=== PATIENT | female | born 1990 | race African-American/Black ===

== ENCOUNTER 2019-09-04 19:05 | Emergency (ER) | payer OTHER, SELFPAY ==
[2019-09-04 19:55] VITALS: BP 138/77; PULSE 70; RESP 16; TEMP 36.4; O2SAT 100
--- NOTE | 2019-09-04 20:44 | ED.DENTAL ---
HPI - Dental/Oral General Chief complaint: Dental/Oral Stated complaint: toothache Time Seen by Provider: 09/04/19 20:44 Source: patient Mode of arrival: ambulatory Limitations: no limitations History of Present Illness HPI Narrative: The pt is a 28 y/o female who presents to the ED c/o upper and lower right-sided toothache onset today. Pt states that she has had sore throat and swollen tonsils the past few days. Pt received Amoxicillin for this. She states she is unsure if she has any broken or chipped teeth, but notes that she has tried Advil and Orajel without relief. Pt denies fever and chills. Pt notes that she sees a dentist at the dental school at [facility], but did not have anything done the last time she went because of other medical issues. MD Complaint: tooth pain Relieving factors: nothing Associated symptoms: sore throat (Onset few days ago) and other (Swollen tonsils (Onset few days ago)) Treatment prior to arrival: topical analgesic and other (Advil) Related Data Home Medications Medication Instructions Recorded Confirmed amoxicillin-pot clavulanate tablet 09/04/19 Allergies Allergy/AdvReac Type Severity Reaction Status Date / Time No Known Allergies Allergy Verified 09/04/19 20:12 Review of Systems Review of Systems: All systems reviewed & are unremarkable except as noted in HPI and below Constitutional: Constitutional: Denies chills and Denies fever(s) ENT: Reports mouth pain (Upper and lower right-sided toothache), Reports sore throat (Onset few days ago) and Reports other (Swollen tonsils (Onset few days ago)) PMFSH Past Medical History Medical History (Updated 09/04/19 @ 21:00 by Joselo Spicer DO) Gallbladder disease Surgical History Surgical History (Updated 09/04/19 @ 20:51 by Juan Barney) H/O section History of cholecystectomy Social History Social History (Updated 09/04/19 @ 20:51 by Juan Barney) Smoking status: Smoker, status unknown Gender identity (if verbalized by the patient): Female Exam Narrative: Exam Narrative: APPEARANCE: No acute distress, nontoxic, resting in bed HEENT: Normocephalic, atraumatic, TMs clear bilaterally, nares patent, oral mucosa moist, airway patent, tonsils 3+ with no exudate, mild erythema posterior pharynx, tooth #4 and 29 are tender to palpation tooth #4 has had filling placed, mild erythema no fluctuance of the gum no overlying swelling of the jaw no submandibular tenderness no sublingual or tenderness RESPIRATORY: No respiratory distress MUSCULOSKELETAl: Moves all extremities. NEURO: Awake and alert. Following commands, speech normal, no focal deficits SKIN:: Warm, dry. Normal Color PSYCHIATRIC: Normal affect/mood Course Course Emergency Course: Patient is currently on Augmentin and while patient continue to take Discussed with patient results of workup and diagnosis. Discussed need for follow-up with primary care, proper use of medication, and reasons to return to the emergency department. Patient understands and agrees to current treatment plan Vital Signs Vital signs: Vital Signs Temperature 97.5 F L 09/04/19 19:55 Pulse Rate 70 09/04/19 19:55 Respiratory Rate 16 09/04/19 19:55 Blood Pressure 138/77 09/04/19 19:55 Pulse Oximetry 100 09/04/19 19:55 Temperature 97.5 F L 09/04/19 19:55 Pulse Rate 70 09/04/19 19:55 Respiratory Rate 16 09/04/19 19:55 Blood Pressure 138/77 09/04/19 19:55 Pulse Oximetry 100 09/04/19 19:55 Discharge Plan Discharge Clinical Impression: Odontalgia Patient Disposition: Home, Self-Care Condition: Stable Instructions: Antibiotic Form, Toothache (ED) Additional Instructions: Return for increasing pain, fever or any other symptoms of concern Prescriptions: New ibuprofen [IBU] 600 mg tablet 600 mg PO Q6H PRN (Reason: pain) Qty: 20 RF: 0 No Action amoxicillin-pot clavulanate 875-125 mg tablet RF: 0 Follow-up/Refer
== END 2019-09-04 21:00 | disposition home or self-care (01) ==
PROVIDERS: Emergency Provider Emergency Medicine
DX: K08.89 Other specified disorders of teeth and supporting structures (principal)
CPT/HCPCS: 99283; A9270

== ENCOUNTER 2019-10-12 03:37 | Emergency (ER) | payer OTHER, SELFPAY ==
--- NOTE | ~2019-10-12 | XR_ITS ---
EXAMINATION: XR chest 1V portable DATE: 10/12/2019 04:49 INDICATION: 2 weeks of cough TECHNIQUE: frontal view of the chest was obtained. COMPARISON: None FINDINGS: The lungs are clear with no focal airspace opacities, pulmonary edema, pleural effusion or pneumothor ax. The cardiomediastinal silhouette is normal. Visualized bones and soft tissues are unremarkable. IMPRESSION: 1. No acute cardiopulmonary disease. Reviewed, dictated and finalized at location A.
[2019-10-12 03:53] VITALS: BP 146/74; PULSE 79; RESP 12; TEMP 36.3; O2SAT 99
--- NOTE | 2019-10-12 04:12 | ECG_ITS ---
Measurements Intervals [place] Rate: 66 P: 38 NV: 167 QRS: 49 QRSD: 88 T: 41 QT: 393 QTc: 413 Interpretive Statements SINUS RHYTHM WITH SINUS ARRHYTHMIA NORMAL ECG Electronically Signed On 10-12-2019 6:55:21 CDT by Femi Tong D.O.
--- NOTE | 2019-10-12 04:38 | ED.URI ---
HPI - URI/Sore Throat General Chief Complaint: Upper Respiratory Infection Stated Complaint: cough x 2 wks Time Seen by Provider: 10/12/19 04:01 Source: patient Mode of arrival: ambulatory Limitations: no limitations History of Present Illness HPI Narrative: 28 yo female who presents for evaluation of dry cough x 2 weeks. PAtient states 2 weeks ago she developed a cough. She thought her symptoms were getting better but then her cough worsened on Friday. She states tonight she developed shortness of breath and chest tightness and back pain. She describes burning chest pain and that pain is worse with coughing. She also reports constant chest tightness. She denies fever, chills, nausea, vomiting or sore throat. She denies leg pain or swelling. She denies history asthma. She denies sick contacts. MD elicited complaint: cough Onset (ago): week(s) Consistency: progressively worsening Description of mucous: clear Able to tolerate fluids by mouth: Yes Associated symptoms: cough, chest pain and shortness of breath Related Data Home Medications Medication Instructions Recorded Confirmed amoxicillin-pot clavulanate tablet 09/04/19 Allergies Allergy/AdvReac Type Severity Reaction Status Date / Time No Known Allergies Allergy Verified 09/04/19 20:12 Review of Systems Review of Systems: All systems reviewed & are unremarkable except as noted in HPI and below Constitutional: Constitutional: Denies chills, Denies fever(s) and Denies weakness ENT: Denies dizziness Cardiovascular: Cardiovascular: Reports chest pain, Denies rapid heart rate and Denies radiating jaw, neck or arm pain Respiratory: Respiratory: Denies chest congestion, Reports cough, Reports dyspnea and Denies wheezing Gastrointestinal: Gastrointestinal: Denies abdominal pain, Denies nausea and Denies vomiting Musculoskeletal: Musculoskeletal: Reports back pain [facility] Past Medical History Medical History Gallbladder disease Surgical History Surgical History H/O section History of cholecystectomy Social History Social History (Updated 10/12/19 @ 04:44 by Aminta Painter MD) Smoking status: Former smoker Gender identity (if verbalized by the patient): Female Exam Const: General: no acute distress and alert Orientation/consciousness: patient oriented x3 HENMT: Head: normocephalic and atraumatic Ears: hearing grossly normal bilaterally, external ears normal and TM's normal bilaterally General nose exam: Normal external nose present and Normal nares present Face and sinus: face symmetric Mouth: Yes Normal oral and palatal mucosa present, Yes lip normal and Yes oropharynx normal Throat: posterior oropharynx normal and tonsils normal Eyes: Conjunctivae: conjunctivae normal Pupils: Equal, round and reactive pupils present EOM: EOMs intact bilaterally Chest: Chest palpation & inspection: normal inspection of the chest Resp: Effort & Inspection: normal respiratory effort, no retractions and not tachypneic Auscultation: clear to auscultation bilaterally and diminished lung sounds Cardio: Rate: regular rate Rhythm: regular rhythm Heart sounds: no murmurs GI: GI Palp: Yes Soft to palpation, No Tenderness to palpation present (GI), No Guarding due to palpation present (GI), No Rigid due to palpation and No Hernia present Skin: General skin exam: normal color Rashes: no rashes Neuro: General: patient oriented x3 and moves all extremities Extrem: General: no pedal edema and no calf tenderness Course Reevaluation(s) Reevaluation #1: Patient states she feels better after receiving albuterol MDI. I have discussed no significant abnormalities to labs. Her chest xray shows patchy infiltrate on left. She is stable for discharge. She request testing for COVID. Given cough, chest tightness and sob will test.
[2019-10-12 04:39] VITALS: O2SAT 100
[2019-10-12 04:39] LABS: Basophils Percent Auto 0.4 % (0.2-1.2); Eosinophils Absolute Auto 0.1 K/mm3 (0-0.3); Eosinophils Percent Auto 0.9 % (0-4.4); Hematocrit 39.7 % (37.0-47.0); Hemoglobin 13.2 g/dL (12.0-15.0); Immature Granulocyte Absolute 0.02 K/mm3 (0.00-0.031); Immature Granulocyte Percent A 0.2 % (0-0.5); Lymphocytes Absolute Auto 3.82 K/mm3 (0.9-3.2); Lymphocytes Percent Auto 45.1 % (18.3-44.2); Mean Corpuscular HGB Conc 33.2 g/dl (32-36); Mean Corpuscular Hemoglobin 29.4 pg (26-34); Mean Corpuscular Volume 88.4 fl (80-100); Mean Platelet Volume 10.1 fl (7.4-10.4); Monocytes Absolute Auto 0.5 K/mm3 (0.1-0.6); Monocytes Percent Auto 5.5 % (2.6-8.5); Neutrophils Absolute Auto 4.1 K/mm3 (1.3-6.7); Neutrophils Percent Auto 47.9 % (45.5-73.1); Platelet Count Result 397 k/mm3 (150-375); Red Blood Count 4.49 M/mm3 (4.2-5.4); Red Cell Distribution Width 14.5 % (11.5-14.5); White Blood Count 8.5 K/mm3 (4.5-10.0)
[2019-10-12 04:48] LABS: INR 0.9; Prothrombin Time 11.4 Seconds (11.1-14.7)
[2019-10-12 04:49] LABS: Partial Thromboplastin Time 31.2 SECONDS (22.3-36.8)
[2019-10-12 04:52] LABS: Alanine Aminotransferase 13 U/L (4-35); Albumin Level 4.3 g/dL (3.5-5.1); Alkaline Phosphatase 64 U/L (38-126); Aspartate Amino Transferase 18 U/L (14-36); Bilirubin,Total 0.1 mg/dL (0.2-1.3); Blood Urea Nitrogen 15 mg/dL (7-17); Calcium 9.2 mg/dL (8.4-10.2); Carbon Dioxide 25 mmol/L (22-30); Chloride 103 mmol/L (98-107); Estimated Glomerular Filt Rate > 60; Glucose 95 mg/dL (65-105); Potassium 3.7 mmol/L (3.4-5.0); Sodium 136 mmol/L (137-145)
[2019-10-12 04:57] LABS: D Dimer 0.27 ug/mL (<0.48)
[2019-10-12 05:03] LABS: Troponin I < 0.012 ng/mL (0.000-0.034)
[2019-10-12] MEDS: ALBUTEROL SULFATE (*SP) AEROSOL 1 PUFF 2 PUFF INHALATION (05:21)
[2019-10-12 05:30] VITALS: BP 130/93; PULSE 78; RESP 12; O2SAT 100
[2019-10-12 06:11] VITALS: BP 123/88; PULSE 78; RESP 17; TEMP 36.9; O2SAT 97
[2019-10-13 12:22] LABS: SARS-CoV-2 RNA PCR Negative
== END 2019-10-12 06:10 | disposition home or self-care (01) ==
PROVIDERS: Emergency Provider General Practice
DX: J40 Bronchitis, not specified as acute or chronic (principal); J06.9 Acute upper respiratory infection, unspecified; Z20.828 Contact with and (suspected) exposure to other viral communicable diseases; Z87.891 Personal history of nicotine dependence
CPT/HCPCS: 36415; 71045; 80053; 84484; 85025; 85380; 85610; 85730; 87635; 87804; 93005; 99284; A9270; U0003

== ENCOUNTER 2020-01-07 20:18 | Emergency (ER) | payer OTHER, SELFPAY ==
--- NOTE | ~2020-01-07 | XR_ITS ---
EXAMINATION: XR chest 2V 01/07/2020 21:01 INDICATION: Intermittent right-sided chest pain PROCEDURE: 2 view chest COMPARISON: 10/12/2019 FINDINGS: The lungs are clear. The cardiomediastinal silhouette is within normal limits. There are no pleural effusions. There is no pneumothorax suspected. IMPRESSION: 1: NO ACUTE CARDIOPULMONARY DISEASE. Reviewed, dictated and finalized at location A.
[2020-01-07 20:19] VITALS: BP 147/77; PULSE 73; RESP 20; TEMP 36.6; O2SAT 100
--- NOTE | 2020-01-07 20:21 | ECG_ITS ---
Measurements Intervals [place] Rate: 71 P: 49 DE: 151 QRS: 48 QRSD: 90 T: 42 QT: 388 QTc: 422 Interpretive Statements SINUS RHYTHM DELAYED PRECORDIAL R/S TRANSITION BORDERLINE ECG Electronically Signed On 01-08-2020 7:04:22 CDT by Femi Tong D.O.
[2020-01-07 20:35] LABS: Basophils Percent Auto 0.4 % (0.2-1.2); Eosinophils Absolute Auto 0.1 K/mm3 (0-0.3); Eosinophils Percent Auto 0.9 % (0-4.4); Hematocrit 40.4 % (37.0-47.0); Hemoglobin 13.2 g/dL (12.0-15.0); Immature Granulocyte Absolute 0.01 K/mm3 (0.00-0.031); Immature Granulocyte Percent A 0.1 % (0-0.5); Lymphocytes Absolute Auto 3.41 K/mm3 (0.9-3.2); Lymphocytes Percent Auto 46.1 % (18.3-44.2); Mean Corpuscular HGB Conc 32.7 g/dl (32-36); Mean Corpuscular Hemoglobin 29.3 pg (26-34); Mean Corpuscular Volume 89.6 fl (80-100); Mean Platelet Volume 10.6 fl (7.4-10.4); Monocytes Absolute Auto 0.4 K/mm3 (0.1-0.6); Monocytes Percent Auto 5.4 % (2.6-8.5); Neutrophils Absolute Auto 3.5 K/mm3 (1.3-6.7); Neutrophils Percent Auto 47.1 % (45.5-73.1); Platelet Count Result 390 k/mm3 (150-375); Red Blood Count 4.51 M/mm3 (4.2-5.4); Red Cell Distribution Width 14.6 % (11.5-14.5); White Blood Count 7.4 K/mm3 (4.5-10.0)
[2020-01-07 20:45] LABS: Prothrombin Time 12.8 Seconds (11.1-14.7)
[2020-01-07 20:46] LABS: Blood Urea Nitrogen 13 mg/dL (7-17); Calcium 9.4 mg/dL (8.4-10.2); Carbon Dioxide 27 mmol/L (22-30); Chloride 100 mmol/L (98-107); Estimated CRCL calculation 105 ml/min; Estimated Glomerular Filt Rate > 60; Glucose 86 mg/dL (65-105); Partial Thromboplastin Time 31.5 SECONDS (22.3-36.8); Potassium 3.9 mmol/L (3.4-5.0); Sodium 135 mmol/L (137-145)
[2020-01-07 20:58] LABS: Troponin I < 0.012 ng/mL (0.000-0.034)
[2020-01-07] MEDS: ASPIRIN 81 MG CHEWABLE TABLET 324 MG PO (21:33)
--- NOTE | 2020-01-07 21:33 | PC.NURSE ---
RAINA Renee at bedside for assessment.
[2020-01-07 21:35] VITALS: PULSE 75
--- NOTE | 2020-01-07 21:37 | ED.GENADULT ---
HPI - General Adult General Chief complaint: Chest Pain <Camden Keene PA-C - Last Filed: 01/07/20 21:46> Stated complaint: chest pain <Camden Keene PA-C - Last Filed: 01/07/20 21:46> Time Seen by Provider: 01/07/20 21:46 <Camden Keene PA-C - Last Filed: 01/07/20 21:46> Source: patient and family <Camden Keene PA-C - Last Filed: 01/07/20 21:46> Mode of arrival: ambulatory <Camden Keene PA-C - Last Filed: 01/07/20 21:46> Limitations: no limitations <Camden Keene PA-C - Last Filed: 01/07/20 21:46> History of Present Illness HPI narrative: Patient is a 29-year-old female who presents with intermittent right-sided chest pain that began at 7 AM notes mild aching pain nothing made it better or worse on arrival to emergency department patient notes that the symptoms have resolved patient denies any recent illness sick contacts and on arrival is resting comfortably in the room in no distress has not taken anything for her symptoms <Camden Keene PA-C - Last Filed: 01/07/20 21:46> Related Data Home medications: Home Medications Medication Instructions Recorded Confirmed amoxicillin-pot clavulanate tablet 09/04/19 <Camden Keene PA-C - Last Filed: 01/07/20 21:46> Allergies/adverse reactions: Allergies Allergy/AdvReac Type Severity Reaction Status Date / Time No Known Allergies Allergy Verified 09/04/19 20:12 <Camden Keene PA-C - Last Filed: 01/07/20 21:46> Review of Systems Review of Systems: All systems reviewed & are unremarkable except as noted in HPI and below <Camden Keene PA-C - Last Filed: 01/07/20 21:46> PMFSH Past Medical History Medical History: Medical History (Updated 01/07/20 @ 21:40 by Camden Keene PA-C) Anxiety Gallbladder disease <KINGS [place]iff Last Filed: 01/07/20 21:46> Surgical History Surgical History: Surgical History H/O section History of cholecystectomy <Camden Keene PA-C - Last Filed: 01/07/20 21:46> Social History Social History: Social History Smoking status: Former smoker Gender identity (if verbalized by the patient): Female <Camden Keene PA-C - Last Filed: 01/07/20 21:46> Exam Narrative: Exam Narrative: GENERAL: Well-appearing, obese, and in no acute distress. HEAD: Normocephalic, atraumatic. EYES: PERRLA and EOMI. ENT: Nares clear, no rhinorrhea or epistaxis. Mucous membranes moist. CHEST: Clear to auscultation. No respiratory distress. No wheezes rales or rhonchi HEART: Regular rate and rhythm. No murmur heard. Normal peripheral pulses. ABDOMEN: Soft, nontender, nondistended EXTREMITIES: Normal range of motion. No edema. SKIN: Warm, dry, no rash. NEURO: No focal deficits. Alert and oriented x3. PSYCH: Normal mood and affect. <Camden Keene PA-C - Last Filed: 01/07/20 21:46> Course Course Emergency Course: Patient in the room in no distress aware of case findings treatment plan and diagnosis felt appropriate for outpatient reevaluation. <Camden Keene PA-C - Last Filed: 01/07/20 21:46> Vital Signs Vital signs: Vital Signs Temperature 97.8 F 01/07/20 20:19 Pulse Rate 73 01/07/20 20:19 Respiratory Rate 20 01/07/20 20:19 Blood Pressure 147/77 H 01/07/20 20:19 Pulse Oximetry 100 01/07/20 20:19 Temperature 97.8 F 01/07/20 20:19 Pulse Rate 70 01/08/20 00:10 Respiratory Rate 18 01/08/20 00:10 Blood Pressure 115/72 01/08/20 00:10 Pulse Oximetry 98 01/08/20 00:10 <Camden Keene PA-C - Last Filed: 01/07/20 21:46> Vital Signs Temperature 97.8 F 01/07/20 20:19 Pulse Rate 73 01/07/20 20:19 Respiratory Rate 20 01/07/20 20:19 Blood Pressure 147/77 H 01/07/20 20:19 Pulse Oximetry 100 01/07/20 20:19 Temperature 9
[2020-01-07 22:28] VITALS: BP 120/76; PULSE 60; RESP 20; O2SAT 100
--- NOTE | 2020-01-07 22:41 | PC.NURSE ---
pt updated that we are awaiting lab results. No current needs at this time.
[2020-01-07 23:48] LABS: Troponin I < 0.012 ng/mL (0.000-0.034)
[2020-01-08 00:10] VITALS: BP 115/72; PULSE 70; RESP 18; O2SAT 98
== END 2020-01-08 00:11 | disposition home or self-care (01) ==
LOC: ANHED 21:55
PROVIDERS: Emergency Provider Emergency Medicine
DX: R07.9 Chest pain, unspecified (principal); Z87.891 Personal history of nicotine dependence; R94.31 Abnormal electrocardiogram [ECG] [EKG]
CPT/HCPCS: 36415; 71046; 80048; 84484; 85025; 85610; 85730; 93005; 99284; A9270

== ENCOUNTER 2020-03-18 18:23 | Emergency (ER) | payer OTHER, SELFPAY ==
--- NOTE | ~2020-03-18 | XR_ITS ---
EXAMINATION: XR knee RT 3V DATE: 03/18/2020 18:49 INDICATION: Right knee pain. TECHNIQUE: 3 views of right knee on 4 radiographs were obtained. COMPARISON: None. FINDINGS: Bone alignment is normal. No fracture. There is mild tricompartmental osteoarthritis. No kn ee joint effusion. IMPRESSION: 1. Mild right knee osteoarthritis. Reviewed, dictated and finalized at location A.
[2020-03-18 18:25] VITALS: BP 143/82; PULSE 88; RESP 18; TEMP 36.4; O2SAT 100
--- NOTE | 2020-03-18 19:16 | ED.GENADULT ---
HPI - General Adult General Chief complaint: Fall Stated complaint: fall, leg pain Time Seen by Provider: 03/18/20 18:33 Source: patient Mode of arrival: ambulatory Limitations: no limitations History of Present Illness HPI narrative: Patient is a 29-year-old female who presents to emergency department for evaluation of right leg injury that occurred after slipping on a slick surface just prior to arrival patient notes aching pain to the anterior left knee patient is able to ambulate patient has not been seen for this complaint patient otherwise in no distress Related Data Home Medications Medication Instructions Recorded Confirmed No Home Medications 03/18/20 03/18/20 Allergies Allergy/AdvReac Type Severity Reaction Status Date / Time No Known Allergies Allergy Verified 03/18/20 18:27 Review of Systems Review of Systems: All systems reviewed & are unremarkable except as noted in HPI and below PMFSH Past Medical History Medical History Anxiety Gallbladder disease Surgical History Surgical History H/O section History of cholecystectomy Social History Social History Smoking status: Former smoker Gender identity (if verbalized by the patient): Female Exam Narrative: Exam Narrative: GENERAL: Well-appearing, well-nourished, and in no acute distress. HEAD: Normocephalic, atraumatic. EYES: PERRLA and EOMI. ENT: Nares clear, no rhinorrhea or epistaxis. Mucous membranes moist. EXTREMITIES: Normal range of motion. No edema. Tenderness of the anterior right knee no deformity noted SKIN: Warm, dry, no rash. NEURO: No focal deficits. Alert and oriented x3. Neurovascularly intact PSYCH: Normal mood and affect. Course Course Emergency Course: Patient in the room in no distress aware of case findings treatment plan and diagnosis agreeing to follow-up with primary care and felt appropriate for outpatient reevaluation Vital Signs Vital signs: Vital Signs Temperature 97.6 F 03/18/20 18:25 Pulse Rate 88 03/18/20 18:25 Respiratory Rate 18 03/18/20 18:25 Blood Pressure 143/82 H 03/18/20 18:25 Pulse Oximetry 100 03/18/20 18:25 Temperature 97.6 F 03/18/20 18:25 Pulse Rate 88 03/18/20 18:25 Respiratory Rate 18 03/18/20 18:25 Blood Pressure 143/82 H 03/18/20 18:25 Pulse Oximetry 100 03/18/20 18:25 Medical Decision Making MDM Narrative Medical decision making narrative: Patients injury or pain is consistent with musculoskeletal etiology. No signs of neurological or vascular compromise on exam. Compartments and tisues are soft without signs of compartment syndrome. Pain is felt appropriate for further evaluation on an outpatient basis. Vital Signs Vital Signs: Vital Signs Temperature 97.6 F 03/18/20 18:25 Pulse Rate 88 03/18/20 18:25 Respiratory Rate 18 03/18/20 18:25 Blood Pressure 143/82 H 03/18/20 18:25 Pulse Oximetry 100 03/18/20 18:25 Temperature 97.6 F 03/18/20 18:25 Pulse Rate 88 03/18/20 18:25 Respiratory Rate 18 03/18/20 18:25 Blood Pressure 143/82 H 03/18/20 18:25 Pulse Oximetry 100 03/18/20 18:25 Discharge Plan Discharge Clinical Impression: Right knee sprain Patient Disposition: Home, Self-Care Condition: Stable Instructions: Antibiotic Form, Knee Pain (ED) Additional Instructions: Wear Tony wrap with limited weight on the affected leg until able to bear weight without pain. Ice and elevate extremity. Pain medication as needed and directed. Follow up with your doctor for further care in the next 7 days. Prescriptions: No Action No Home Medications RF: 0 Follow-up/Referrals: PHYSICIAN NOT ON STAFF,NONSTAFF [Primary Care Provider] - Charity Alfaro DO [Physician] - Stand Alone Forms: Work/School Release IP
== END 2020-03-18 19:37 | disposition home or self-care (01) ==
LOC: ANHED 19:31
PROVIDERS: Emergency Provider Emergency Medicine
DX: S83.91XA Sprain of unspecified site of right knee, initial encounter (principal); Z87.891 Personal history of nicotine dependence; W01.0XXA Fall on same level from slipping, tripping and stumbling without subsequent striking against object, initial encounter
CPT/HCPCS: 73562; 99283

== ENCOUNTER 2020-06-05 03:32 | Emergency (ER) | payer OTHER, SELFPAY ==
[2020-06-05 03:35] VITALS: BP 142/88; PULSE 67; RESP 16; TEMP 35.8; O2SAT 100
--- NOTE | 2020-06-05 03:39 | ED.NAVMDI ---
HPI - Nausea/Vomiting/Diarrhea General Chief complaint: Nausea/Vomiting/Diarrhea Stated complaint: Nausea/Vomiting, Rash Time Seen by Provider: 06/05/20 03:39 History of Present Illness HPI Narrative: 29 yo female presents to the ED from home for a rash. She first noted an itchy bump on her left elbow about 1 weekago. She initially thought it was a mosquito bite. Since then it has spread out a few cm and sh also has burning pain. Additioanlly she has had some mild nausea, which she thinks could be related. Related Data Allergies Allergy/AdvReac Type Severity Reaction Status Date / Time No Known Allergies Allergy Verified 06/05/20 03:44 Review of Systems Review of Systems: All systems reviewed & are unremarkable except as noted in HPI and below Constitutional: Constitutional: Denies chills and Denies fever(s) Cardiovascular: Cardiovascular: Denies chest pain Respiratory: Respiratory: Denies cough and Denies dyspnea Gastrointestinal: Gastrointestinal: Denies abdominal pain, Reports nausea and Denies vomiting Musculoskeletal: Musculoskeletal: Denies back pain Integumentary/Breasts: Skin/Breast: Reports rash Neurologic: Denies focal weakness and Denies numbness [facility] Past Medical History Medical History (Updated 06/05/20 @ 04:02 by Aquilino Smith MD) Anxiety Gallbladder disease Surgical History Surgical History H/O section History of cholecystectomy Social History Social History Smoking status: Former smoker Gender identity (if verbalized by the patient): Female Exam Const: General: no acute distress and alert Nutritional Appearance: obese Orientation/consciousness: patient oriented x3 HENMT: Head: normal to inspection Resp: Effort & Inspection: normal respiratory effort Auscultation: clear to auscultation bilaterally Cardio: Rate: regular rate Rhythm: regular rhythm GI: GI Palp: Yes Soft to palpation and No Tenderness to palpation present (GI) Skin: Other: 4 cm uneven mildly erythematous and warm area over left elbow. Mildy tender. No fluctuance or open wound. Neuro: General: patient oriented x3 and moves all extremities Speech: normal speech Gait exam (Neuro): Normal gait present Extrem: Other: Full ROM without pain in left elbow. Course Vital Signs Vital signs: Vital Signs Temperature 35.8 C L 06/05/20 03:35 Pulse Rate 67 06/05/20 03:35 Respiratory Rate 16 06/05/20 03:35 Blood Pressure 142/88 H 06/05/20 03:35 Pulse Oximetry 100 06/05/20 03:35 Temperature 35.8 C L 06/05/20 03:35 Pulse Rate 67 06/05/20 03:35 Respiratory Rate 16 06/05/20 03:35 Blood Pressure 142/88 H 06/05/20 03:35 Pulse Oximetry 100 06/05/20 03:35 MDM - Nausea/Vomiting/Diarrhea MDM Narrative Medical decision making narrative: She has a fairly nonspecific rash, this is made even less clear by the fact that it is located on the thick and uneven skin of the elbow. Given this I will treat for allergic and infectious causes. Discharge Plan Discharge Clinical Impression: Dermatitis Patient Disposition: Home, Self-Care Condition: Stable Instructions: Antibiotic Form, Dermatitis (ED) Additional Instructions: Apply triamcinolone cream twice daily for 5 days Prescriptions: New cephalexin [Keflex] 500 mg capsule 500 mg PO Q12H Qty: 14 RF: 0 Follow-up/Referrals: Atif,Camden Arreguin, ANP [Primary Care Provider] -
[2020-06-05] MEDS: CEPHALEXIN 500 MG CAPSULE PO (03:54)
[2020-06-05] MEDS: TRIAMCINOLONE ACET 0.1% CREAM 15 GM TUBE 1 APPLIC TOPICAL (03:58)
[2020-06-05] MEDS: ONDANSETRON HCL ODT 4 MG TABLET PO (04:11)
== END 2020-06-05 04:20 | disposition home or self-care (01) ==
PROVIDERS: Emergency Provider Emergency Medicine; PCP Nurse Practitioner Adult Health
DX: L30.9 Dermatitis, unspecified (principal); Z87.891 Personal history of nicotine dependence
CPT/HCPCS: 99283; A9270

== ENCOUNTER 2020-11-10 12:20 | Emergency (ER) | payer OTHER, SELFPAY ==
[2020-11-10 12:42] VITALS: BP 131/74; PULSE 62; RESP 20; TEMP 36.6; O2SAT 100
--- NOTE | 2020-11-10 13:31 | ED.URI ---
HPI - URI/Sore Throat General Chief Complaint: Upper Respiratory Infection Stated Complaint: sore throat, swollen tonsils, uri Time Seen by Provider: 11/10/20 13:17 History of Present Illness HPI Narrative: Sore throat for the past few days. Worsening in severity. Associated with painful swollen tonsils, fatigue, and cough. She has a h/o recurrent strep infections. No fever, sick contacts. Related Data Allergies Allergy/AdvReac Type Severity Reaction Status Date / Time No Known Allergies Allergy Verified 11/10/20 12:45 Review of Systems Review of Systems: All systems reviewed & are unremarkable except as noted in HPI and below Constitutional: Constitutional: Denies chills, Reports fatigue and Denies fever(s) Eyes: Eyes: Reports no additional eye complaints ENT: Denies dysphagia, Denies dizziness, Denies nasal congestion and Reports sore throat Cardiovascular: Cardiovascular: Denies chest pain Respiratory: Respiratory: Denies chest congestion, Reports cough, Denies dyspnea and Denies wheezing Gastrointestinal: Gastrointestinal: Denies abdominal pain and Denies nausea Genitourinary: Genitourinary: Reports no additional female genitourinary complaints Musculoskeletal: Musculoskeletal: Reports myalgias Neurologic: Denies dizziness and Denies weakness PMFSH Past Medical History Medical History Anxiety Gallbladder disease Surgical History Surgical History H/O section History of cholecystectomy Social History Social History Smoking status: Former smoker Gender identity (if verbalized by the patient): Female Exam Const: General: healthy appearing, no acute distress and alert Orientation/consciousness: patient oriented x3 HENMT: Head: normal to inspection Ears: external ears normal and TM's normal bilaterally Face and sinus: normal facial exam Mouth: Yes Normal oral and palatal mucosa present Teeth and gingiva: dentition normal Throat: abnormal tonsil bilateral erythema, hypertrophy and crypts and posterior oropharynx abnormal erythema Neck: Neck: lymphadenopathy Resp: Effort & Inspection: normal respiratory effort Auscultation: clear to auscultation bilaterally, no rales, no rhonchi and no wheezes Cardio: Jugular venous distension: no JVD Rate: regular rate Rhythm: regular rhythm Heart sounds: no murmurs GI: GI Palp: Yes Soft to palpation Skin: General skin exam: normal color Neuro: General: patient oriented x3 and moves all extremities Speech: normal speech Gait exam (Neuro): Normal gait present Extrem: General: no edema Psych: Appearance: well kempt Affect: normal affect Course Vital Signs Vital signs: Vital Signs Temperature 36.6 C 11/10/20 12:42 Pulse Rate 62 11/10/20 12:42 Respiratory Rate 20 11/10/20 12:42 Blood Pressure 131/74 11/10/20 12:42 Pulse Oximetry 100 11/10/20 12:42 Temperature 36.6 C 11/10/20 12:42 Pulse Rate 62 11/10/20 12:42 Respiratory Rate 20 11/10/20 12:42 Blood Pressure 131/74 11/10/20 12:42 Pulse Oximetry 100 11/10/20 12:42 MDM - URI/Sore Throat MDM Narrative Medical decision making narrative: Strep positive. Appears well with normal vitals. Medical Records Attestation: I reviewed the patient's medical records. Lab Data Attestation: I reviewed the patient's lab results. Labs: Strep Screen Positive Group A Strep *(Reference Range: Negative)* Discharge Plan Discharge Clinical Impression: Strep pharyngitis Patient Disposition: Home, Self-Care Condition: Stable Instructions: Antibiotic Form, Strep Throat (ED) Prescriptions: New penicillin V potassium 500 mg tablet 500 mg PO Q12H Qty: 20 RF: 0 No Action cephalexin [Keflex] 500 mg capsule 500 mg PO
== END 2020-11-10 13:51 | disposition home or self-care (01) ==
LOC: ANHED 13:34
PROVIDERS: Emergency Provider Emergency Medicine; PCP Nurse Practitioner Family
DX: J02.0 Streptococcal pharyngitis (principal); Z87.891 Personal history of nicotine dependence
CPT/HCPCS: 87880; 99283

== ENCOUNTER 2021-01-30 09:13 | Emergency (ER) | payer OTHER, SELFPAY ==
[2021-01-30 09:16] VITALS: BP 134/84; PULSE 82; RESP 18; TEMP 36.7; O2SAT 99
--- NOTE | 2021-01-30 10:01 | ED.URI ---
HPI - URI/Sore Throat General Chief Complaint: Upper Respiratory Infection Stated Complaint: Sore Throat Time Seen by Provider: 01/30/21 09:39 Source: patient Mode of arrival: ambulatory Limitations: no limitations History of Present Illness HPI Narrative: Patient is 30 year old female who presents complaining of sore throat and dry cough x 4 days. Patient reports no known Covid exposure. Patient is not Covid vaccinated. Patient denies shortness of breath and fever but states she felt warm . She denies taking over the counter medications for pain. Patient denies significant medical history. Related Data Home Medications Medication Instructions Recorded Confirmed No Home Medications 01/30/21 01/30/21 Allergies Allergy/AdvReac Type Severity Reaction Status Date / Time No Known Allergies Allergy Verified 01/30/21 09:20 Review of Systems Review of Systems: CONSTITUTIONAL: Denies fever, chills, or sweats. EYES: Denies visual changes, redness, or discharge. ENT: Reports sore throat CARDIOVASCULAR: Denies chest pain, palpitations, or edema. RESPIRATORY: Reports cough, denies dyspnea. GASTROINTESTINAL: Denies abdominal pain, nausea, vomiting, or diarrhea. GENITOURINARY: Denies dysuria or hematuria. SKIN: Denies rash or itching. MUSCULOSKELETAL: Denies back pain, joint pain, or myalgia. NEUROLOGIC: Denies headache, numbness, dizziness, or weakness. PSYCHIATRIC: Denies anxiety or depression. PMFSH Past Medical History Medical History Anxiety Gallbladder disease Surgical History Surgical History H/O section History of cholecystectomy Social History Social History (Updated 01/30/21 @ 10:17 by VIRGIL Melendrez) Smoking status: Current some day smoker Alcohol intake: current Alcohol use details: occasional Substance use: never Living arrangements: with family Gender identity (if verbalized by the patient): Female Comments At the time of signature, I have reviewed and agree with nursing past medical, surgical, social, and family history unless otherwise noted. Please see nursing chart for further information. There is no relevant family history pertinent to the presenting complaint. Exam Narrative: GENERAL: Well-appearing, well-nourished, and in no acute distress. HEAD: Normocephalic, atraumatic. EYES: EOMI. No redness or drainage. Conjunctiva are normal. ENT: Mucous membranes pink and moist. Nares clear. No rhinorrhea. Throat normal with mild erythema noted, no edema or exudate. Uvula midline. NECK: AROM. Supple. No lymphadenopathy. CHEST: No respiratory distress. HEART: Regular rate and rhythm. EXTREMITIES: Normal range of motion. No edema. SKIN: Warm, dry, no rash. NEURO: No focal deficits. Alert and oriented x3. Gait steady. PSYCH: Normal affect. No signs of depression or anxiety. Course Vital Signs Vital signs: Vital Signs Temperature 36.7 C 01/30/21 09:16 Pulse Rate 82 01/30/21 09:16 Respiratory Rate 18 01/30/21 09:16 Blood Pressure 134/84 01/30/21 09:16 Pulse Oximetry 99 01/30/21 09:16 Temperature 36.7 C 01/30/21 09:16 Pulse Rate 82 01/30/21 09:16 Respiratory Rate 18 01/30/21 09:16 Blood Pressure 134/84 01/30/21 09:16 Pulse Oximetry 99 01/30/21 09:16 Reviewed-patient is informed that they may have pre-hypertension or hypertension based on a blood pressure reading. I recommend the patient call the primary care provider listed on their discharge instructions or a physician of their choice this week to arrange follow-up for further evaluation of possible pre-hypertension or hypertension. MDM - URI/Sore Throat MDM Narrative Medical decision making narrative: Patient's rapid strep negative at this time. Discussed Covid testing. Covid PCR sent. Patient educated on quarantine and symptomatic treatment. Patient is
[2021-01-30 18:17] LABS: SARS-CoV-2 RNA PCR Negative
== END 2021-01-30 10:16 | disposition home or self-care (01) ==
PROVIDERS: Emergency Provider Nurse Practitioner; PCP Nurse Practitioner Family
DX: Z20.822 Contact with and (suspected) exposure to COVID-19 (principal); J06.9 Acute upper respiratory infection, unspecified; F41.9 Anxiety disorder, unspecified; F17.210 Nicotine dependence, cigarettes, uncomplicated
CPT/HCPCS: 87081; 87880; 99283; C9803; U0003; U0005

== ENCOUNTER 2021-04-27 01:19 | Emergency (ER) | payer OTHER, SELFPAY ==
[2021-04-27 01:35] VITALS: BP 137/77; PULSE 82; RESP 18; TEMP 36.3; O2SAT 100
--- NOTE | 2021-04-27 02:06 | ED.WOUNDLAC ---
HPI - Wound/Laceration General Chief Complaint: Wound/Laceration Stated Complaint: sutures open post surgical Time Seen by Provider: 04/27/21 01:29 Source: patient Mode of arrival: ambulatory Limitations: no limitations History of Present Illness HPI narrative: This is a 30 year old female who presents for evaluation possible open postoperative wound. She reports [address] Rogers performed a vulvar cyst excision. She developed pain 2 days ago , and today she took a picture of it. She denies fever or drainage. She is reporting severe pain with urination. Related Data Allergies Allergy/AdvReac Type Severity Reaction Status Date / Time No Known Allergies Allergy Verified 01/30/21 09:20 Review of Systems Review of Systems: All systems reviewed & are unremarkable except as noted in HPI and below PMFSH Past Medical History Medical History (Updated 04/27/21 @ 03:04 by Aminta Painter MD) Anxiety Gallbladder disease Surgical History Surgical History (Updated 04/27/21 @ 02:23 by Aminta Painter MD) H/O section H/O removal of cyst History of cholecystectomy Social History Social History (Updated 01/30/21 @ 10:17 by VIRGIL Melendrez) Smoking status: Current some day smoker Alcohol intake: current Alcohol use details: occasional Substance use: never Gender identity (if verbalized by the patient): Female Exam Const: General: no acute distress and alert Orientation/consciousness: patient oriented x3 Eyes: EOM: EOMs intact bilaterally Resp: Effort & Inspection: normal respiratory effort Skin: Other: just posterior to vagina introtus with wound approximately3 cm with granulation tissue. No purulent drainage. Neuro: General: patient oriented x3, moves all extremities and CN's II-XI intact bilaterally Psych: Mental Status: mental status grossly normal Affect: normal affect Course Reevaluation(s) Reevaluation #1: I Discussed with patient that she will need to apply vasoline or antibiotic ointment and keep wound covered in order for it to heal Date: 04/27/21 Time: 03:00 Consultations Consultation #1: I discussed wound with DR. Rogers. HE states wound needs to be covered and heal by secondary. Patient can follow up in 1 week. Date: 04/27/21 Time: 02:09 Vital Signs Vital signs: Vital Signs Temperature 97.4 F L 04/27/21 01:35 Pulse Rate 82 04/27/21 01:35 Respiratory Rate 18 04/27/21 01:35 Blood Pressure 137/77 04/27/21 01:35 Pulse Oximetry 100 04/27/21 01:35 Temperature 97.4 F L 04/27/21 01:35 Pulse Rate 82 04/27/21 01:35 Respiratory Rate 18 04/27/21 01:35 Blood Pressure 137/77 04/27/21 01:35 Pulse Oximetry 100 04/27/21 01:35 Discharge Plan Discharge Clinical Impression: Postoperative wound dehiscence Qualifiers: Encounter type: initial encounter Qualified Code(s): T81.31XA - Disruption of external operation (surgical) wound, not elsewhere classified, initial encounter Patient Disposition: Home, Self-Care Condition: Stable Instructions: Antibiotic Form, Wound Dehiscence (ED), Acute Wounds (ED) Additional Instructions: You will need to keep wound clean and covered. Apply bacitracin to your wound and keep covered to allow wound to heal. This may take 7-[address] Rogers with any additional questions. You will need to follow up in at least 7 days. Prescriptions: New bacitracin 500 unit/gram ointment 1 applic topical BID Qty: 14 RF: 0 hydrocodone-acetaminophen 5-325 mg tablet 1 tablet PO Q6H PRN (Reason: pain) Qty: 7 RF: 0 Follow-up/Referrals: Yon,Jackie Olea APRN [Primary Care Provider] - Fidel Rogers MD [Physician] -
== END 2021-04-27 03:30 | disposition home or self-care (01) ==
PROVIDERS: Emergency Provider General Practice; PCP Nurse Practitioner Family
DX: T81.31XA Disruption of external operation (surgical) wound, not elsewhere classified, initial encounter (principal); F17.200 Nicotine dependence, unspecified, uncomplicated
CPT/HCPCS: 99283

== ENCOUNTER 2021-07-03 11:06 | Emergency (ER) | payer OTHER, SELFPAY ==
[2021-07-03 11:30] VITALS: BP 140/76; PULSE 86; RESP 18; TEMP 37.2; O2SAT 100
--- NOTE | 2021-07-03 14:06 | ED.GENADULT ---
HPI - General Adult General Chief complaint: Upper Respiratory Infection Stated complaint: sore throat Time Seen by Provider: 07/03/21 12:18 Source: patient Mode of arrival: ambulatory Limitations: no limitations History of Present Illness HPI narrative: Patient is 30-year-old female who is non vaccinated for Covid presenting with chief complaint of sore throat and congestion that started yesterday. Patient reports that she had Covid in February and received monoclonal antibodies. She denies any fevers, chills, chest pain, shortness of breath or trouble swallowing. Patient denies any other concerns. Related Data Allergies Allergy/AdvReac Type Severity Reaction Status Date / Time No Known Allergies Allergy Verified 01/30/21 09:20 Review of Systems Review of Systems: CONSTITUTIONAL: Denies fever, chills, or sweats. EYES: Denies visual changes, redness, or discharge. ENT: Reports congestion and sore throat denies rhinorrhea or otalgia. CARDIOVASCULAR: Denies chest pain, palpitations, or edema. RESPIRATORY: Denies cough or dyspnea. GASTROINTESTINAL: Denies abdominal pain, nausea, vomiting, or diarrhea. GENITOURINARY: Denies dysuria or hematuria. SKIN: Denies rash or itching. MUSCULOSKELETAL: Denies back pain, joint pain, or myalgia. NEUROLOGIC: Denies headache, numbness, dizziness, or weakness. PSYCHIATRIC: Denies anxiety or depression. [facility] Past Medical History Medical History (Updated 07/03/21 @ 13:37 by Shaun Chu PA-C) Anxiety Gallbladder disease Surgical History Surgical History (Updated 04/27/21 @ 02:23 by Aminta Painter MD) H/O section H/O removal of cyst History of cholecystectomy Social History Social History (Updated 01/30/21 @ 10:17 by VIRGIL Melendrez) Smoking status: Current some day smoker Alcohol intake: current Alcohol use details: occasional Substance use: never Gender identity (if verbalized by the patient): Female Exam Narrative: GENERAL: Well-appearing, well-nourished, and in no acute distress. HEAD: Normocephalic, atraumatic. EYES: PERRLA and EOMI. ENT: Nares clear, no rhinorrhea or epistaxis. Mucous membranes moist. Oropharynx without tonsillar hypertrophy exudate or other lesions. NECK: Supple. No adenopathy or masses. No carotid bruits or JVD CHEST: Clear to auscultation. No respiratory distress. No wheezes rales or rhonchi HEART: Regular rate and rhythm. No murmur heard. Normal peripheral pulses. SKIN: Warm, dry, no rash. NEURO: No focal deficits. Alert and oriented x3. PSYCH: Normal mood and affect. Course Vital Signs Vital signs: Vital Signs Temperature 99 F 07/03/21 11:30 Pulse Rate 86 07/03/21 11:30 Respiratory Rate 18 07/03/21 11:30 Blood Pressure 140/76 07/03/21 11:30 Pulse Oximetry 100 07/03/21 11:30 Temperature 99 F 07/03/21 11:30 Pulse Rate 86 07/03/21 11:30 Respiratory Rate 18 07/03/21 11:30 Blood Pressure 140/76 07/03/21 11:30 Pulse Oximetry 100 07/03/21 11:30 Medical Decision Making MDM Narrative Medical decision making narrative: Patient strep test negative. Patient vitals are stable. Patient not hypoxic or toxic. Patient tested for Covid and given quarantine instructions and return ER instructions. Differential Diagnosis Differential Diagnosis: Covid, pneumonia, strep, influenza, viral infection, Vital Signs Vital Signs: Vital Signs Temperature 99 F 07/03/21 11:30 Pulse Rate 86 07/03/21 11:30 Respiratory Rate 18 07/03/21 11:30 Blood Pressure 140/76 07/03/21 11:30 Pulse Oximetry 100 07/03/21 11:30 Temperature 99 F 07/03/21 11:30 Pulse Rate 86 07/03/21 11:30 Respiratory Rate 18 07/03/21 11:30 Blood Pressure 140/76 07/03/21 11:30 Pulse Oximetry 100 07/03/21 11:30 Lab Data Labs: Lab Results 07/03/21 Range/Units 13:38 SARS-CoV-2 RNA (RT-PCR) Pending Strep Screen Presumptive Negative
[2021-07-04 20:50] LABS: SARS-CoV-2 RNA PCR Positive
== END 2021-07-03 13:48 | disposition home or self-care (01) ==
PROVIDERS: Physician Assistant; Emergency Provider Emergency Medicine; PCP Nurse Practitioner Family
DX: U07.1 COVID-19 (principal); F41.9 Anxiety disorder, unspecified; F17.200 Nicotine dependence, unspecified, uncomplicated
CPT/HCPCS: 87081; 87880; 99283; C9803; U0003; U0005

== ENCOUNTER 2021-07-15 15:53 | Emergency (ER) | payer OTHER, SELFPAY ==
[2021-07-15 16:12] VITALS: BP 131/77; PULSE 82; RESP 18; TEMP 36.3; O2SAT 98
--- NOTE | 2021-07-15 16:51 | ED.GENADULT ---
HPI - General Adult General Chief complaint: Unspecified Stated complaint: exposed to HIV Time Seen by Provider: 07/15/21 16:28 Source: patient Mode of arrival: ambulatory Limitations: no limitations History of Present Illness HPI narrative: This is a 30 year old female that presents to the ER for STD check. Reports she had unprotected sex 2 days ago. Reports she is unsure of her partners STD status which concerned her and prompted her to be seen. Her partner does not report any known STDs. Patient does report she has had some abnormal discharge since yesterday consistent with her history of BV. Denies fever or dysuria. Related Data Allergies Allergy/AdvReac Type Severity Reaction Status Date / Time No Known Allergies Allergy Verified 01/30/21 09:20 Review of Systems Review of Systems: CONSTITUTIONAL: Denies fever GENITOURINARY: Denies dysuria or hematuria. SKIN: Denies rash All systems reviewed & are unremarkable except as noted in HPI and below PMFSH Past Medical History Medical History (Updated 07/15/21 @ 19:41 by Ana Reardon PA-C) Anxiety Gallbladder disease Surgical History Surgical History (Updated 04/27/21 @ 02:23 by Aminta Painter MD) H/O section H/O removal of cyst History of cholecystectomy Social History Social History (Updated 01/30/21 @ 10:17 by Martha Dee, [employer]PERATOR) Smoking status: Current some day smoker Alcohol intake: current Alcohol use details: occasional Substance use: never Gender identity (if verbalized by the patient): Female Exam Narrative: GENERAL: Well-appearing, well-nourished, and in no acute distress. HEAD: Normocephalic, atraumatic. EYES: EOMI. CHEST: No respiratory distress. HEART: Regular rate EXTREMITIES: Normal range of motion. No edema. SKIN: Warm, dry, no rash. NEURO: No focal deficits. Alert and oriented x3. PSYCH: Normal mood and affect Course Vital Signs Vital signs: Vital Signs Temperature 97.3 F L 07/15/21 16:12 Pulse Rate 82 07/15/21 16:12 Respiratory Rate 18 07/15/21 16:12 Blood Pressure 131/77 07/15/21 16:12 Pulse Oximetry 98 07/15/21 16:12 Temperature 97.3 F L 07/15/21 16:12 Pulse Rate 82 07/15/21 16:12 Respiratory Rate 18 07/15/21 17:41 Blood Pressure 131/77 07/15/21 16:12 Pulse Oximetry 98 07/15/21 16:12 Medical Decision Making MDM Narrative Medical decision making narrative: Patient presents to the ER after unprotected sex with concern for possible STD exposure. Partner is not known to have any STDs. But patient is concerned of her risk of gabo HIV. UA shows 10-15 white blood cells, but also many squamous epithelial cells. This will be sent for culture. Trichomonas is negative. Chlamydia and gonorrhea were sent. HIV screen is negative. Hepatitis A and B are negative. Hepatitis C and RPR are pending. Bedside test is negative. I did speak with patient that we do not routinely do prophylaxis if the partner is not known to be positive for HIV. Patient understands. I told her I could send the medication to the pharmacy and she can have a discussion with her primary doctor if she would like to start this. She also has had some abnormal vaginal discharge and would like to be treated for BV. Patient is stable and felt appropriate for further outpatient evaluation. She was given warnings to return to the ER Vital Signs Vital Signs: Vital Signs Temperature 97.3 F L 07/15/21 16:12 Pulse Rate 82 07/15/21 16:12 Respiratory Rate 18 07/15/21 16:12 Blood Pressure 131/77 07/15/21 16:12 Pulse Oximetry 98 07/15/21 16:12 Temperature 97.3 F L 07/15/21 16:12 Pulse Rate 82 07/15/21 16:12 Respiratory Rate 18 07/15/21 17:41 Blood Pressure 131/77 07/15/21 16:12 Pulse Oximetry 98 07/15/21 16:12 Lab Data Lab results reviewed: Yes I reviewed the patient's lab results. Labs: Lab Results 07/15/21 07/15/21 07/15/21 Range/Units 17:
[2021-07-15 17:41] VITALS: RESP 18
[2021-07-15 18:12] LABS: Add Urine Microscopic? YES; Appearance Urine Clear (Clear); Bilirubin Urine Negative (Negative); Blood Urine Negative (Negative); Color Urine Yellow (Yellow); Glucose Urine UA Negative (Negative); Ketones Urine Negative (Negative); Leukocyte Esterase Ur Trace LEU/UL (Negative); Mucus Urine Heavy /lpf; Nitrate Urine Negative (Negative); Protein Urine Negative (Negative); Specific Grav Ur 1.026 (1.001-1.035); Squamous Epithelial Cell Urine Many /hpf (Few)
[2021-07-15 19:25] LABS: Hepatitis B Surface Antigen Negative (Negative)
[2021-07-15 19:30] LABS: HAV RESULT Negative (Negative); Hepatitis B Core IgM Result Negative (Negative)
[2021-07-15 19:34] LABS: HIV 1/2 Ab P24 Ag Result Negative (Negative)
[2021-07-15 19:42] LABS: Hepatitis C Virus Antibody Negative (Negative)
[2021-07-15 20:01] VITALS: BP 131/75; PULSE 67; RESP 15; TEMP 36.3; O2SAT 99
[2021-07-16 12:00] LABS: Rapid Plasma Reagin Non-Reactive (NonReactive)
== END 2021-07-15 20:03 | disposition home or self-care (01) ==
PROVIDERS: Physician Assistant; Emergency Provider Emergency Medicine; PCP Nurse Practitioner Family
DX: N89.8 Other specified noninflammatory disorders of vagina (principal); F17.200 Nicotine dependence, unspecified, uncomplicated
CPT/HCPCS: 36415; 80074; 81001; 81025; 86592; 86703; 87070; 87077; 87086; 87088; 87491; 87591; 87808; 99284; G0432